=== PATIENT | female | born 1945 | race Caucasian/White ===

== ENCOUNTER 2020-11-26 17:20 | Outpatient (CLI) | payer MEDICARE, SELFPAY | END 2020-11-26 17:21 | disposition home or self-care (01) | LOC: ANHCOVIDVC 17:21 | PROVIDERS: PCP Podiatrist Foot & Ankle Surgery | DX: Z23 Encounter for immunization (principal) | CPT/HCPCS: 0001A; 91300 ==

== ENCOUNTER 2020-12-17 17:17 | Outpatient (CLI) | payer MEDICARE, SELFPAY | END 2020-12-17 17:18 | disposition home or self-care (01) | LOC: ANHCOVIDVC 17:17 | PROVIDERS: PCP Podiatrist Foot & Ankle Surgery | DX: Z23 Encounter for immunization (principal) | CPT/HCPCS: 0002A; 91300 ==

== ENCOUNTER 2024-02-03 07:27 | Outpatient (CLI) | payer MEDICARE, SELFPAY ==
--- NOTE | 2024-02-03 | EST_ITS ---
Patient Info Name: Charlene Werner Age: 78 years : 1945 Gender: Female Ht: 62 in Wt: 130 lbs BSA: 1.62 m2 HR: 62 bpm BP: 162 / 82 mmHg Heart Rhythm: Sinus Rhythm Exam Date: 02/03/2024 9:44 AM Exam Location: Echo Lab Patient Status: Outpatient Admit Date: 02/03/2024 Staff Ordering Physician: Jose R, Nolan GALEAS Attending Provider: Jose R, Nolan GALEAS Exercise Technologist: Adrienne Lemos CT Exercise Physician: Nathan Whitaker DO Exam Type: CA stress flory w NM Study Info Indications R06.09 - Other forms of dyspnea A regadenoson stress test was performed. Summary 1. No abnormal ST/T wave changes diagnostic of ischemia with Lexiscan. 2. Occasional PVCs. 3. Please correlate with nuclear medicine images, reported separately. 4. Stress test supervised by Kacie Everett NP. Stress test interpreted by Yifan Dave MD. Protocol: Lexiscan Stress ECG Details Stage: REST Duration (min): 2 min : 30 sec HR (bpm): 66 SBP (mmHg): 162 DBP (mmHg): 82 Stage: STAGE 1 Duration (min): 1 min : 0 sec HR (bpm): 83 SBP (mmHg): 170 DBP (mmHg): 80 Stage: RECOVERY Duration (min): 1 min : 0 sec HR (bpm): 101 SBP (mmHg): 170 DBP (mmHg): 80 Stage: RECOVERY Duration (min): 2 min : 0 sec HR (bpm): 89 SBP (mmHg): 170 DBP (mmHg): 80 Stage: RECOVERY Duration (min): 3 min : 0 sec HR (bpm): 82 SBP (mmHg): 165 DBP (mmHg): 82 Stage: RECOVERY Duration (min): 3 min : 21 sec HR (bpm): 82 SBP (mmHg): 165 DBP (mmHg): 82 Peak HR: 104 bpm Rest Sys BP: 162 mmHg Peak Sys BP: 170 mmHg Max Pred HR: 144 bpm % Max Pred HR: 72 % Target HR: 122 bpm Max RPP: 17,680 bpm*mmHg Total Time: 1 min : 0 sec Rest Arriaga BP: 82 mmHg Peak Arriaga BP: 80 mmHg Total Dose: 0.4 mg Resting ECG Sinus rhythm. Stress ECG Sinus rhythm. No abnormal ST/T wave changes diagnostic of ischemia with Lexiscan. Arrhythmias Occasional PVCs. Report Signatures
--- NOTE | 2024-02-03 | ECHO_ITS ---
Patient Info Name: Charlene Werner Age: 78 years : 1945 Gender: Female Ht: 61 in Wt: 130 lbs BSA: 1.60 m2 HR: 61 bpm BP: 162 / 77 mmHg Heart Rhythm: Sinus Rhythm Technical Quality: Good Exam Date: 02/03/2024 7:46 AM Exam Location: Echo Lab Patient Status: Outpatient Admit Date: 02/03/2024 Staff Ordering Physician: Jose RNolan MD Body Straightener: Cherri Feliciano RDCS Attending Provider: BharathNolan MD Exam Type: CA echo doppler color flow Study Info Indications R06.00 - Dyspnea, unspecified Complete two-dimensional, color flow and Doppler transthoracic echocardiogram is performed. Summary 1. Left ventricular chamber dimension is normal. 2. Left ventricular systolic function is normal, estimated at 60-65%. 3. The left ventricular diastolic function is grade I diastolic dysfunction. 4. Right ventricular systolic function is normal. 5. No significant valvular disease. Left Ventricle Left ventricular chamber dimension is normal. Left ventricular systolic function is normal, estimated at 60-65%. There is no increased left ventricular wall thickness. The left ventricular diastolic function is grade I diastolic dysfunction. Right Ventricle Right ventricular chamber dimension is normal. Right ventricular systolic function is normal. Left Atria Left atrial chamber dimension is normal. Right Atria Right atrial chamber dimension is normal. Atrial Septum Intact interatrial septum visualized by color flow imaging. Aortic Valve The aortic valve is trileaflet. There is no aortic valve stenosis. There is no aortic valve regurgitation. Pulmonic Valve The pulmonic valve is not well visualized. There is trace pulmonic regurgitation. Mitral Valve There is trace mitral valve regurgitation. Tricuspid Valve There is trace tricuspid valve regurgitation. Pericardium/Pleural There is no pericardial effusion. Inferior Vena Cava Normal inferior vena cava with >50% collapse upon inspiration consistent with normal right atrial pressure, 3 mmHg. Aorta The aortic root size at the sinus of Valsalva is normal. Tricuspid Valve Name Value Normal Estimated PAP/RSVP RA Pressure 3 mmHg <=5 Report Signatures
--- NOTE | ~2024-02-03 | NM_ITS ---
EXAMINATION: NM flory stress w perfusion DATE: 02/03/2024 11:00 INDICATION: Dyspnea on exertion TECHNIQUE: Rest images were obtained following intravenous administration of 9.7 mCi Tc99m tetrofosmi n (Myoview). The patient was infused intravenously with Lexiscan (Regadenoson). Then, 31.6 mCi Tc99m tetrofosmin (Myoview) was administered intravenously, and stress images were obtained. Data was recon structed into short axis and horizontal and vertical long axis SPECT images. Gated SPECT images were also obtained. COMPARISON: None. FINDINGS: There is no definite reversible or fixed perfusion abnormality to suggest ischemia or infar ction. There is normal left ventricular chamber size, wall motion and ejection fraction. Left ventr icular ejection fraction measures 62%. IMPRESSION: 1. Normal myocardial perfusion at rest and during stress. 2. Left ventricular ejection fraction measuring 62%. Reviewed, dictated and finalized at location A.
== END 2024-02-03 07:28 | disposition home or self-care (01) ==
PROVIDERS: PCP Internal Medicine; Visit Provider Internal Medicine
DX: R06.09 Other forms of dyspnea (principal)
CPT/HCPCS: 78452; 93017; 93306; A9502; J2785